=== PATIENT | female | born 1985 | race Asian ===

== ENCOUNTER 2018-03-01 17:59 | Emergency (ER) | payer OTHER ==
[~2018-03-01] VITALS: Ht 157.5 cm; Wt 69.5 kg
[2018-03-01 18:42] LABS: BASO # 0.1 10^3/uL (0.0-0.2); BASO % 0.5 % (0.0-1.0); EOS # 0.2 10^3/uL (0.0-0.50); EOS % 1.6 % (0.0-3.0); HEMATOCRIT 36.7 % (36.0-47.0); HEMOGLOBIN 12.1 g/dl (12.0-15.5); LYMPH # 2.7 10^3/uL (1.5-4.5); LYMPH % 26.7 % (24.0-44.0); MEAN CORPUSCULAR HEMOGLOBIN 28.5 pg (27.0-33.0); MEAN CORPUSCULAR VOLUME 86.4 fl (80.0-96.0); MONO # 0.7 10^3/uL (0.0-0.8); NEUTROPHILS # 6.5 10^3/uL (1.8-7.7); PLATELET COUNT, AUTOMATED 242 10^3/uL (150-450); RED BLOOD COUNT 4.25 10^6/uL (4.00-5.40); WHITE BLOOD COUNT 10.1 10^3/uL (4.0-10.0)
--- NOTE | 2018-03-01 19:06 | REP ---
Chest one-view HISTORY: Chest pain Comparison: 02/12/2018 The lungs are clear. The heart is normal in size. The pulmonary vasculature is normal in appearance. Impression: No acute disease. Electronically Signed by Aman Chaidez MD 03/01/2018 06:58 P
[2018-03-01 19:18] LABS: ALT/SGPT 27 U/L (12-78); BILIRUBIN,DIRECT < 0.1 MG/DL (0.0-0.2); BILIRUBIN,TOTAL 0.2 MG/DL (0.2-1.0); BLOOD UREA NITROGEN 12 MG/DL (7-18); CALCIUM LEVEL 8.8 MG/DL (8.5-10.1); CARBON DIOXIDE LEVEL 29 MEQ/L (21-32); CHLORIDE LEVEL 100 MEQ/L (98-107); CK-MB VALUE MASS < 1.0 NG/ML (<3.6); CPK CREATINE PHOSPHOKINASE 96 U/L (26-192); CREATININE FOR GFR 0.62 MG/DL (0.55-1.30); FREE T4 0.83 NG/DL (0.76-1.46); GLOMERULAR FILTRATION RATE > 60.0 (>60); GLUCOSE, FASTING 224 MG/DL (70-100); LIPASE 186 U/L (73-393); MB/CK RELATIVE INDEX 1.04 (< OR =4); POTASSIUM SERUM 4.2 MEQ/L (3.5-5.1); SODIUM LEVEL 137 MEQ/L (136-145); TOTAL PROTEIN 7.7 GM/DL (6.4-8.2); TROPONIN I < 0.02 NG/ML (< 0.10)
[2018-03-01 20:09] VITALS: BP 136/70
[2018-03-01] MEDS ORDERED: HOLTER (20:22)
--- NOTE | 2018-03-02 19:49 | ECGEPIP ---
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
== END 2018-03-01 20:52 | disposition home or self-care (01) ==
LOC: M ED 17:59
DX: R00.2 Palpitations (principal); R07.89 Other chest pain

== ENCOUNTER → 2018-03-02 | Outpatient (CLI) | payer OTHER ==
[~2018-03-02] MED LIST: HOLTER
== END ==
LOC: M EKG 11:30
PROVIDERS: ATTEND Internal Medicine
DX: R00.2 Palpitations (principal); Z53.8 Procedure and treatment not carried out for other reasons

== ENCOUNTER → 2018-03-04 | Outpatient (CLI) | payer OTHER ==
--- NOTE | 2018-03-08 21:02 | HOLTMON ---
[facility] Test Date: 2018-03-04 Pat Name: JESUS HOUSTON Department: Room: - Gender: Female [employer] Set Up Operator: Gwendolyn Walker/DEMETRI LAWLER : 1985 Requested By: CRIS Walsh Order Number: [id number] Reading MD: Modesto Malhotra Interpretive Statements cc Nehemiah Fortune [facility] #[phone] There is a great deal of artifact in study No significant diary entries. Heart rate variability was normal. There were no PVC's and rare PAC's and no significant runs. No significant ST events. One event where there was apparent failure of A-V conduction for one beat (03/04/18 at 9:51 AM: non-premature atrial complex with no ventricular complex to follow). No atrial fibrillation was seen. Unremarkable Holter monitor except for the one dropped beat. Electronically Signed On 03-08-2018 21:02:26 EST by Modesto Malhotra
== END ==
LOC: M EKG 09:30
PROVIDERS: ATTEND Internal Medicine
DX: R00.2 Palpitations (principal)